=== PATIENT | male | born 1995 | race Caucasian/White ===

== ENCOUNTER 2017-11-16 22:38 | Emergency (ER) | payer OTHER ==
[2017-11-17] MEDS: ONDANSETRON 4MG/2ML VIAL (J2405) IV (00:10)
[2017-11-17] MEDS: MORPHINE 4 MG/ML 1ML VIAL/SYRINGE (J2270) IV ×2 (00:11→03:12)
[2017-11-17] MEDS ORDERED: METAL LOCK LOOP XX (02:57)
== END 2017-11-17 03:25 | disposition short-term general hospital (02) ==
LOC: M ED 22:38
DX: S82.192A Other fracture of upper end of left tibia, initial encounter for closed fracture (principal); X58.XXXA Exposure to other specified factors, initial encounter; Y92.410 Unspecified street and highway as the place of occurrence of the external cause; Y93.9 Activity, unspecified; Y99.9 Unspecified external cause status; Z79.82 Long term (current) use of aspirin; Z79.899 Other long term (current) drug therapy
CPT/HCPCS: J2270

== ENCOUNTER 2017-11-30 06:09 | Inpatient (IN) | payer OTHER ==
[2017-11-30] MEDS: MORPHINE 4 MG/ML 1ML VIAL/SYRINGE (J2270) IV ×4 (07:06→20:55)
[2017-11-30] MEDS: NS 1,000 ML IV (10:15)
[2017-11-30] MEDS: fentaNYL 100 MCG/2 ML INJECTION (J3010) IV (10:34)
[2017-11-30 10:39] LABS: BASO % 0.5 % (0.0-1.0); EOS % 0.2 % (0.0-3.0); HEMATOCRIT 42.6 % (42.0-52.0); HEMOGLOBIN 15.2 g/dl (13.5-17.5); IMMATURE GRANULOCYTE % 0.2 % (0-3.0); LYMPH # 1.6 10^3/uL (1.5-6.5); MEAN CORPUSCULAR HEMOGLOBIN 29.9 pg (27.0-33.0); MEAN CORPUSCULAR HGB CONC 35.7 g/dl (32.0-36.5); MEAN CORPUSCULAR VOLUME 83.9 fl (80.0-96.0); MONO # 0.3 10^3/uL (0.0-0.8); MONO % 3.5 % (0.0-5.0); NEUTROPHILS # 6.8 10^3/uL (1.8-7.7); NEUTROPHILS % 77.6 % (36.0-66.0); PLATELET COUNT, AUTOMATED 238 10^3/uL (150-450); RED BLOOD COUNT 5.08 10^6/uL (4.30-6.10); RED CELL DISTRIBUTION WIDTH 11.9 % (11.5-14.5); WHITE BLOOD COUNT 8.8 10^3/uL (4.0-10.0)
[2017-11-30 11:01] LABS: ANION GAP 9 MEQ/L (8-16); BLOOD UREA NITROGEN 11 MG/DL (7-18); CALCIUM LEVEL 9.8 MG/DL (8.5-10.1); CARBON DIOXIDE LEVEL 28 MEQ/L (21-32); CHLORIDE LEVEL 106 MEQ/L (98-107); CREATININE FOR GFR 1.04 MG/DL (0.70-1.30); GLUCOSE, FASTING 88 MG/DL (70-100); SODIUM LEVEL 143 MEQ/L (136-145)
[2017-11-30] MEDS: LR 1,000 ML IV (15:50)
[2017-11-30] MEDS: KETOROLAC 30 MG/ML VIAL (J1885) IV (16:54)
[2017-11-30] MEDS: DOCUSATE SODIUM 100 MG CAP PO (20:55)
[2017-12-01] MEDS: LR 1,000 ML IV ×3 (04:18→19:11)
[2017-12-01] MEDS: MORPHINE 4 MG/ML 1ML VIAL/SYRINGE (J2270) IV ×4 (04:18→21:23)
[2017-12-01] MEDS: DOCUSATE SODIUM 100 MG CAP PO ×2 (07:35→21:22)
[2017-12-01] MEDS ORDERED: ceFAZolin 2 GM/D5W 50 ML IV BAG (J0690 PER 500MG) As Ordered (13:25)
[2017-12-01] MEDS ORDERED: dexameTHASONE 4 MG/ML 1ML VIAL (J1100) As Ordered (13:49)
[2017-12-01] MEDS ORDERED: PROPOFOL 200 MG/20 ML VIAL As Ordered ×2 (13:49→14:26)
[2017-12-01] MEDS ORDERED: ONDANSETRON 4MG/2ML VIAL (J2405) As Ordered (13:49)
[2017-12-01] MEDS ORDERED: MIDAZOLAM INJ 2 MG/2 ML VIAL (J2250) As Ordered (13:49)
[2017-12-01] MEDS ORDERED: fentaNYL 250 MCG/5 ML INJECTION (J3010) As Ordered (13:49)
[2017-12-01] MEDS ORDERED: ePHEDrine SULFATE 25 MG/5 ML(5MG/ML) SYRINGE As Ordered (13:49)
[2017-12-01] MEDS ORDERED: LIDOCAINE 2% INJ 100 MG/5 ML SDV (FOR ANES.) As Ordered (13:49)
[2017-12-01] MEDS ORDERED: HYDROmorphone HCL 2 MG/ML 1ML VIAL (J1170) As Ordered (13:50)
[2017-12-01] MEDS: fentaNYL 100 MCG/2 ML INJECTION (J3010) IV ×6 (15:33→16:23)
[2017-12-01] MEDS ORDERED: fentaNYL 100 MCG/2 ML INJECTION (J3010) As Ordered ×2 (15:44→16:17)
[2017-12-01] MEDS ORDERED: ONDANSETRON 4MG/2ML VIAL (J2405) IV (16:00)
[2017-12-01] MEDS ORDERED: PERCOCET 5MG/325MG TAB PO (16:00)
[2017-12-01] MEDS ORDERED: PERCOCET 5MG/325MG TAB As Ordered (16:05)
[2017-12-01] MEDS ORDERED: HYDROMORPHONE HCL 0.5 MG/ 0.5 ML SYRINGE (J1170 PER 1) As Ordered (16:28)
[2017-12-01] MEDS: HYDROMORPHONE HCL 0.5 MG/ 0.5 ML SYRINGE (J1170 PER 1) IV ×2 (16:29→16:35)
[2017-12-01] MEDS ORDERED: NORCO, ANEXSIA 5/325MG TABLET (HYDROcodone/ACETAMINOPHEN) As Ordered ×2 (16:48→17:21)
[2017-12-01] MEDS: NORCO, ANEXSIA 5/325MG TABLET (HYDROcodone/ACETAMINOPHEN) PO ×2 (16:58→17:22)
[2017-12-01] MEDS: KETOROLAC 30 MG/ML VIAL (J1885) IV (19:12)
[2017-12-02] MEDS: PERCOCET 5MG/325MG TAB PO ×4 (00:48→16:59)
[2017-12-02] MEDS: KETOROLAC 30 MG/ML VIAL (J1885) IV (01:36)
[2017-12-02] MEDS: DOCUSATE SODIUM 100 MG CAP PO ×2 (09:36→20:12)
[2017-12-02] MEDS: CYCLOBENZAPRINE 10 MG TAB PO ×3 (09:36→20:11)
[2017-12-02] MEDS: NAPROXEN 250 MG TAB PO ×2 (09:39→20:11)
[2017-12-03] MEDS: CYCLOBENZAPRINE 10 MG TAB PO (09:00)
[2017-12-03] MEDS: DOCUSATE SODIUM 100 MG CAP PO (09:00)
[2017-12-03] MEDS: NAPROXEN 250 MG TAB PO (09:00)
== END 2017-12-03 11:45 | disposition home or self-care (01) | DRG 494 ==
LOC: M ED 06:09 → M ED INP 10:20 → M MS5PR 14:21
PROC: 0QHH04Z Insertion of Internal Fixation Device into Left Tibia, Open Approach (ICD-10-PCS; principal; 2017-12-01 13:30)
DX: S82.255A Nondisplaced comminuted fracture of shaft of left tibia, initial encounter for closed fracture (principal); W18.30XA Fall on same level, unspecified, initial encounter; Y92.009 Unspecified place in unspecified non-institutional (private) residence as the place of occurrence of the external cause